=== PATIENT | male | born 1970 | race Caucasian/White ===

== ENCOUNTER 2016-10-21 07:49 | Outpatient (CLI) | payer OTHER ==
--- NOTE | 2016-10-21 14:29 | Diagnostic Imaging Report ---
AMY MORALES - [facility] [address] [facility] [address] [place] [address]. [id number] Report Submission Date: Oct 21, 2016 11:21:36 AM [employer] Patient Study Name: BENITEZ GONSALVES Date: Oct 21, 2016 9:46:31 AM [employer] Modality Type: CT\SR Gender: M Description: CT ABD & PELVIS W/ CON : 72 Institution: [facility] Physician: AMY MORALES - KI CT ABD & PELVIS W/ CON History:PT STATES LLQ PAIN X2 DAYS. Technique: Transaxial computed tomographic images of the abdomen and pelvis were obtained following administration of 89 cc intravenous contrast according to standard protocol. Findings: Lung bases are clear. The heart size is normal. There is mild hepatic steatosis present. The gallbladder, pancreas, spleen, adrenals, and kidneys are normal. There is focal area of stranding anterior to the most distal portion of the descending colon with central fat attenuation without associated adjacent bowel wall thickening, this is most consistent with epiploic appendagitis. No diverticula are identified. The appendix is normal. There is trace atherosclerosis of the aorta. No adenopathy is present. The bladder is normal. There is no free fluid. Bone windows are normal. Impression: 1. Focal area of stranding anterior to the most distal portion of the descending colon with central fat attenuation without associated adjacent bowel wall thickening, this is most consistent with epiploic appendagitis. 2. Hepatic steatosis. Electronically signed on Oct 21, 2016 11:21:36 AM [employer] by: Gary COLON
== END 2016-10-21 07:50 ==
LOC: RAD 07:49
PROVIDERS: ATTEND Family Medicine
DX: K63.89 Other specified diseases of intestine (principal); K76.0 Fatty (change of) liver, not elsewhere classified; R10.32 Left lower quadrant pain
CPT/HCPCS: 74177; Q9966; A9698